=== PATIENT | female | born 1985 | race Caucasian/White ===

== ENCOUNTER → 2023-05-07 | Outpatient (CLI) | payer BC ==
[~2023-05-07] MED LIST: LIDOCAINE 1% MDV 20ML VIAL As Ordered ONE
[2023-05-07 09:20] VITALS: TEMP 97.8
[2023-05-07 10:00] VITALS: BP 164/76; O2SAT 100
== END ==
LOC: M IRPRO 09:12
PROVIDERS: ATTEND Otolaryngology
DX: E04.1 Nontoxic single thyroid nodule (principal)

== ENCOUNTER → 2023-05-26 | Outpatient (CLI) | payer BC ==
[2023-05-26 08:33] VITALS: TEMP 98.1
[2023-05-26 09:02] VITALS: O2SAT 98
== END ==
LOC: M IRPRO 08:17
PROVIDERS: ATTEND Otolaryngology
DX: E04.1 Nontoxic single thyroid nodule (principal)

== ENCOUNTER → 2023-12-01 | Outpatient (CLI) | payer BC, OTHER | LOC: M RAD 12:48 | PROVIDERS: ATTEND Otolaryngology | DX: E04.1 Nontoxic single thyroid nodule (principal) ==